=== PATIENT | female | born 1995 | race American Indian/Alaskan Native ===

== ENCOUNTER 2019-10-06 15:18 | Emergency (ER) | payer SELFPAY ==
[2019-10-06 15:57] VITALS: BP 142/80
--- NOTE | 2019-10-06 16:36 | Event Note ---
ED Screening Note Date of service: 10/06/19 Time: 16:30 ED Screening Note: Patient complains of vaginal bleeding x this morning Patient states she had a positive test 2 days ago She is unsure of her LMP due to having abnormal menstrual cycles She also states she has lower abdominal pain and cramping This initial assessment/diagnostic orders/clinical plan/treatment(s) is/are subject to change based on patients health status, clinical progression and re- assessment by fellow clinical providers in the ED. Further treatment and workup at subsequent clinical providers discretion. Patient/guardian urged not to elope from the ED as their condition may be serious if not clinically assessed and managed. Initial orders include: labs US
[2019-10-06 16:47] LABS: Basophils % (Auto) 0.6 % (0.0-1.8); Eosinophils # (Auto) 0.2 K/mm3 (0.0-0.4); Eosinophils % (Auto) 2.8 % (0.0-4.3); Hematocrit 39.9 % (30.3-42.9); Hemoglobin 12.8 gm/dl (10.1-14.3); Lymphocytes # (Auto) 1.7 K/mm3 (1.2-5.4); Lymphocytes % (Auto) 24.8 % (13.4-35.0); Mean Corpuscular HGB Conc 32 % (30-34); Mean Corpuscular Volume 82 fl (79-97); Monocytes # (Auto) 0.5 K/mm3 (0.0-0.8); Monocytes % (Auto) 6.7 % (0.0-7.3); Platelet Count 266 K/mm3 (140-440); Red Blood Count 4.86 M/mm3 (3.65-5.03); Red Cell Distribution Width 15.1 % (13.2-15.2)
[2019-10-06 17:11] LABS: Alanine Aminotransferase 9 units/L (7-56); Albumin 3.9 g/dL (3.9-5); BUN/Creatinine Ratio 12; Blood Urea Nitrogen 7 mg/dL (7-17); Calcium 9.2 mg/dL (8.4-10.2); Hemolysis Index 4
--- NOTE | 2019-10-06 17:53 | Ultrasound Report ---
TRANSABDOMINAL AND TRANSVAGINAL OB PELVIC ULTRASOUND INDICATION / CLINICAL INFORMATION: Vaginal bleeding and pelvic pain. COMPARISON: None available. FINDINGS: TRANSABDOMINAL: The uterus measures 11.3 x 8.4 x 9.7 cm. There is a single intrauterine wit h an estimated gestational age of 12 weeks 1 day by crown-rump length. The heart rate is 166 bp m. There is no evidence of implantation hemorrhage. The right ovary measures 4.1 x 2.5 x 3.1 cm and the left ovary 4.3 x 1.5 x 2.4 cm. There is normal bl ood flow to both ovaries on Doppler exam. I see no evidence of adnexal mass or free fluid. TRANSVAGINAL: There is a 1.2 cm intramural fibroid in the lower uterine segment posteriorly. The cerv ix measures 4 cm in length and the internal os is closed. IMPRESSION: 1. Single viable 12 week 1 day intrauterine without complication. 2. 1.2 cm fibroid in the lower uterine segment posteriorly. Signer Name: Shay Edgar MD Signed: 10/06/2019 5:48 PM Workstation Name: [id number]
--- NOTE | 2019-10-06 19:52 | Emergency Department Report ---
ED HPI - General Chief complaint: Vaginal Bleeding Stated complaint: POSS MICARRIAGE Time Seen by Provider: 10/06/19 16:29 Source: patient Mode of arrival: Ambulatory Limitations: No Limitations - History of Present Illness Initial comments: Patient complains of vaginal bleeding x this morning Patient states she had a positive test 2 days ago She is unsure of her LMP due to having abnormal menstrual cycles She also states she has lower abdominal pain and cramping MD Complaint: vaginal bleeding Onset/Timin -: days(s) Location: pelvis Radiation: suprapubic Severity: mild Quality: cramping Consistency: intermittent Improves with: none Worsens with: none Associated symptoms: vaginal bleeding, abdominal pain :: Yes OB History - Current : no complications Pre-gualberto care: none - Related Data : 1 Previous Rx's Medication Instructions Recorded Last Taken Type Vit-Fe Fumar-FA [ 1 tab PO QDAY 90 Days #90 tablet 10/06/19 Unknown Rx Vitamin] Allergies Allergy/AdvReac Type Severity Reaction Status Date / Time No Known Allergies Allergy Unverified 10/06/19 15:52 ED Review of Systems ROS: Stated complaint: POSS MICARRIAGE Other details as noted in HPI Comment: All other systems reviewed and negative ED Past Medical Hx - Past Medical History Previous Medical History?: Yes Hx Asthma: Yes - Surgical History Past Surgical History?: No - Social History Smoking Status: Current Every Day Smoker Substance Use Type: Alcohol, Marijuana - Medications Home Medications: Home Medications Medication Instructions Recorded Confirmed Last Taken Type Vit-Fe Fumar-FA [ 1 tab PO QDAY 90 Days #90 tablet 10/06/19 Unknown Rx Vitamin] ED Physical Exam - General Limitations: No Limitations General appearance: alert, in no apparent distress - Head Head exam: Present: atraumatic, normocephalic - Eye Eye exam: Present: normal appearance - ENT ENT exam: Present: mucous membranes moist - Neck Neck exam: Present: normal inspection - Respiratory Respiratory exam: Present: normal lung sounds bilaterally. Absent: respiratory distress - Cardiovascular Cardiovascular Exam: Present: regular rate, normal rhythm. Absent: systolic murmur, diastolic murmur, rubs, gallop - GI/Abdominal GI/Abdominal exam: Present: soft, normal bowel sounds - Extremities Exam Extremities exam: Present: normal inspection - Back Exam Back exam: Present: normal inspection - Neurological Exam Neurological exam: Present: alert, oriented X3 - Psychiatric Psychiatric exam: Present: normal affect, normal mood - Skin Skin exam: Present: warm, dry, intact, normal color. Absent: rash ED Course Vital Signs 10/06/19 15:55 Temperature 98.4 F Pulse Rate 89 Respiratory 16 Rate Blood Pressure 142/80 O2 Sat by Pulse 100 Oximetry ED Medical Decision Making - Lab Data Result diagrams: 10/06/19 16:37 10/06/19 16:37 - Radiology Data Radiology results: report reviewed Referring Physician:MARY ROSSPatient Name:CHRISTINE MULLENPatient ID:[id number] of :[id number]:FemaleAccession:[id number] Date:9065-96-90Exdgca Status:[place] [address] Ultrasound Report Signed Patient: CHRISTINE MULLEN R#: [id number] : 1995 Acct:[id number] Age/Sex: 24 / F ADM Date: 10/06/19 Loc: ED Attending Dr: Ordering Physician: MARY ROSS Date of Service: 10/06/19 Procedure(s): OB transvaginal Accession Number(s): [id number] cc: MARY ROSS TRANSABDOMINAL AND TRANSVAGINAL OB PELVIC ULTRASOUND INDICATION / CLINICAL INFORMATION: Vaginal bleeding and pelvic pain. COMPARISON: None available. FINDINGS: TRANSABDOMINAL: The uterus measures 11.3 x 8.4 x 9.7 cm. There is a single intrauterine with an estimated gestational age of 12 weeks 1 day by crown-rump length. The heart rate is 166 bpm. There is no evidence of implantation hemorrhage. The right ovary measures 4.1 x 2.5 x 3.1 cm and the left ovary 4.3 x 1.5 x 2.4 cm. There is normal blood flow to both ovaries on Doppler exam. I see no evidence of adnexal mass or free fluid. TRANSVAGINAL: There is a 1.2 cm intramural fibroid in the lower uterine segment posteriorly. The cervix measures 4 cm in length and the internal os is closed. IMPRESSION: 1. Single viable 12 week 1 day intrauterine without complication. 2. 1.2 cm fibroid in the lower uterine segment posteriorly. Signer Name: Shay Edgar MD Signed: 10/06/2019 5:48 PM Workstation Name: [id number] Transcribed By: RT Dictated By: Shay Edgar MD Electronically Authenticated By: Shay Edgar MD Signed Date/Time: 10/06/191747 DD/ 43 TD/TT: - Medical Decision Making Patient complains of vaginal bleeding x this morning Patient states she had a positive test 2 days ago She is unsure of her LMP due to having abnormal menstrual cycles She also states she has lower abdominal pain and cramping Ultrasound shows that she is 12 weeks and 1 day with a anterior uterine viable gestation with out complications Patient will be started on vitamins. Instructions on following up with a primary RISK ASSESSOR. Discussed with patient she can only take Tylenol for pain. Discussed with patient to return back immediately if she starts having worsening bleeding or cramping. Critical care attestation.: If time is entered above; I have spent that time in minutes in the direct care of this critically ill patient, excluding procedure time. ED Disposition Clinical Impression: Threatened miscarriage in early Disposition: DC-01 TO HOME OR SELFCARE Is pt being admited?: No Does the pt Need Aspirin: No Condition: Stable Instructions: Threatened Miscarriage (ED) Additional Instructions: Single viable 12-week 1 day intrauterine without complications this wi th the ultrasound stated. You do have a fibroid in the lower uterus. No signs of anemia. I would like for you to increase your water intake by 3 L daily. Tylenol/acetaminophen is the only pain medication that you need to take. I would like for you to take your vitamins start them at night and if you do well take them during the day. Be sure to incorporate at least 6 to 8 hours daily for rest. No intercourse strenuous exercising for the next week. Follow- up with your RISK ASSESSOR I have listed several below for your convenience. Prescriptions: Vit-Fe Fumar-FA [ Vitamin] 1 tab PO QDAY 90 Days #90 tablet Referrals: [facility] [Provider Group] - 3-5 Days [facility] [Provider Group] - 3-5 Days [facility] [Provider Group] - 3-5 Days
== END 2019-10-06 20:11 | disposition home or self-care (01) ==
LOC: ED 15:18
DX: O20.0 Threatened abortion (principal); O99.511 Diseases of the respiratory system complicating pregnancy, first trimester; O99.331 Smoking (tobacco) complicating pregnancy, first trimester; J45.909 Unspecified asthma, uncomplicated; Z3A.12 12 weeks gestation of pregnancy
CPT/HCPCS: 36415; 76801; 76817; 80053; 84702; 85025; 86900; 86901